=== PATIENT | female | born 1985 | race Caucasian/White ===

== ENCOUNTER 2017-07-15 15:19 | Emergency (ER) | payer MEDICAID, SELFPAY ==
[2017-07-15 15:20] VITALS: BP 108/69; PULSE 98; RESP 16; TEMP 37.1; O2SAT 100; BMI 17.4
--- NOTE | 2017-07-15 16:03 | CT_ITS ---
STUDY: CT BRAIN WITHOUT CONTRAST REASON FOR EXAM: Female, 32 years old. Headache x3 days RADIATION DOSAGE (If Supplied By Facility): CTDIvol = ( 44.99 ) mGy, DLP = ( 779.24 ) mGycm TECHNIQUE: Transaxial CT imaging of the brain was performed without administration of intravenous contrast material. Individualized dose optimization techniques were used for this CT. COMPARISON: 03/22/2015 FINDINGS: Normal soft tissue structures. Normal calvarium. Normal size ventricles and extra-axial spaces for the patient's age. Normal white matter tracts of the cerebral hemispheres. Normal basal ganglia and thalami. Normal brainstem. Normal cerebellum. There is no intracranial hemorrhage. There are no findings of an acute ischemic infarction. Normal visualized paranasal sinuses. CT/Brain/Head without Contrast IMPRESSION: Normal unenhanced CT scan of the brain. Electronically Signed: Kasi Hugo DO at 16:59 EDT Tel , Service support ,
[2017-07-15 16:04] VITALS: BP 114/86; PULSE 83; RESP 14; O2SAT 100
--- NOTE | 2017-07-15 16:07 | ED.RN ---
AFTER PLACING PT ON ED CART, PT TAKEN TO ED ROOM 5. UPON ENTERING THE ROOM, PT ABLE TO SIT UP AND ASSIST STAFF IN REMOVING HER CLOTHING. WHEN FATHER ENTERED THE ROOM PT WAS HANDED HER CELL PHONE BY THE FATHER AND PT ABLE TO PULL UP A NOTE SHE HAD WRITTEN FOR THE STAFF TO READ ABOUT HER CURRENT ILLNESS
--- NOTE | 2017-07-15 16:10 | ED.RN ---
PT WAS SITTING IN THE HALLWAY WAITING FOR A ROOM. ACCORDING TO FATHER PT SLID SLOWLY TO THE FLOOR AND THEN STARTED SHAKING. WHEN ASKED IF SHE HAD A SEIZURE HISTORY HE SAID SHE HAS A HEART CONDITION AND THIS HAPPENS SOMETIMES. PT WAS SHAKING ON THE FLOOR BUT HER HEAD WAS NOT HITTING THE FLOOR. PT'S HEAD WAS HELD TO AVOID INJURY UNTIL A BED AND ADDITIONAL STAFF ARRIVED. PT WAS THEN LIFTED ONTO THE BED. AT THIS TIME THERE WAS NO MORE SHAKING NOTED. PT REMAINED PINK AND CONTINUED TO BREATH WITH A STEADY PULSE THROUGHOUT THE EPISODE.
[2017-07-15] MEDS: 0.9% Normal Saline 1,000 ML 999 ML IV (16:16)
[2017-07-15] MEDS: LORazepam 2 MG/ML Syringe 1 MG IV (16:16)
[2017-07-15] MEDS: proCHLORPERazine 10 MG/2 ML Vial IV (16:17)
[2017-07-15] MEDS: Ketorolac 30 MG/ML Syringe IV (16:18)
--- NOTE | 2017-07-15 16:21 | ED.DCSUM_ITS ---
- ER Visit Summary Date of Service: 07/15/17 Chief Complaint: Headache History of Present Illness: The patient is a 32 F who states that she has had a occipital migraine for 3 days. She takes Topamax prescribed through her family physician. She states that she was driving around [place] this afternoon began to have stuttering. Her arms were shaking. Significant other states her left arm did not seem to want to work. She has never had stuttering before. She has had recurrent syncope. He states that this is due to SVT. She has MVP. She has had cardiac ablations in the past. She has had several visits for syncope here. Noted that stress and anxiety can play a role in her medical conditions. 1 prior syncope described her to have her eyes fluttering in her arm shaking. In triage the patient had a episode where she collapsed. Nurses note her eyes were fluttering and arms were shaking. They got her back to the room and she was able to sit up reach for her cell phone and help them get her dressed. Physical Examination: Afebrile vital signs are stable Gen: Well-nourished well-developed Head: Normocephalic atraumatic Eyes: Perrl EOMI ENT: TMs clear no rhinorrhea moist mucous membranes Neck: Supple no lymphadenopathy no JVD nontender CVS: Regular rate rhythm no murmurs normal S1-S2 Respiratory: No distress clear to auscultation bilaterally chest nontender Abdomen: Soft nontender nondistended normal bowel sounds no masses Back: Nontender Extremity: Nontender no edema Skin: Normal color no rash Neuro: alert orientated ?3 CN II-XII intact normal strength sensation reflexes the patient's daughters Psych: She has Test Results: CT brain showed no acute findings. Emergency Department Course and Treatment: She received IV fluids, Toradol, Compazine, and Ativan. Repeat examination shows the patient to no longer be stuttering shaking. She states her headache is significantly improved to the point of near resolution. Patient notes that she is under a significant amount of stress. She has several open court cases. She used to be in counseling but is no longer. I believe a lot of the patient's symptoms today are related to her stress and anxiety. This would borderline on conversion disorder. Patient will be discharged home to follow-up with her doctor. She is asked for a local neurologist to discuss her headaches. Impression: 1. Headache 2. Conversion disorder This note was generated with [employer] dictation software. It may contain incorrect words, spelling, and punctuation that were not noted in review of the chart prior to signing ED Disposition - Plan for ED Patient: Disposition: Home or Assisted Living Chief Complaint: Headache Instructions: ED Headache Migraine Referrals: Tomeka Nichols MD [Primary Care Provider] - 3-5 Days Km Cross MD [STAFF PHYSICIAN] - (for neurology ) Additional Instructions: I would recommend to help cope with your stress you start counseling again.
[2017-07-15 18:15] VITALS: BP 85/53; PULSE 73; RESP 16; O2SAT 99
[2017-07-15 19:12] VITALS: BP 93/55; PULSE 88; RESP 14; O2SAT 98
== END 2017-07-15 19:13 | disposition home or self-care (01) ==
PROVIDERS: Emergency Provider Emergency Medicine; Family Provider Family Medicine; PCP Family Medicine
DX: R51 Headache (principal); F44.9 Dissociative and conversion disorder, unspecified; R55 Syncope and collapse; Z72.0 Tobacco use
CPT/HCPCS: 70450; 99284; J7030; A4216

== ENCOUNTER 2019-02-01 18:04 | Emergency (ER) | payer MEDICAID, SELFPAY ==
[2019-02-01 18:05] VITALS: BP 109/58; PULSE 118; RESP 16; TEMP 37.6; O2SAT 97; BMI 16.2
--- NOTE | 2019-02-01 18:10 | EKG12_ITS ---
Test Reason : CP Blood Pressure : / mmHG Vent. Rate : 107 BPM Atrial Rate : 107 BPM P-R Int : 130 ms QRS Dur : 084 ms QT Int : 306 ms P-R-T Axes : 061 090 -02 degrees QTc Int : 408 ms Sinus tachycardia Rightward axis Nonspecific ST/T wave abnormality Abnormal ECG Confirmed by MERLYN VALDES, NORRIS ([id number]), order editor PABLO HANSEN ([id number]) on 02/03/2019 1:57:24 PM Referred By: GÉNESIS Confirmed By:NORRIS ZULETA MD
--- NOTE | 2019-02-01 18:29 | RAD_ITS ---
STUDY: X-RAY CHEST REASON FOR EXAM: Female, 33 years old. Cough TECHNIQUE: PA and lateral views of the chest COMPARISON: X-Ray Chest August 11, 2014 FINDINGS: There are small right middle and lower lung zone infiltrates. The left lung is unremarkable. There are no pleural effusions. There is no pneumothorax. The heart is normal in size. The visualized osseous structures are within normal limits. RAD/Chest PA and Lateral IMPRESSION: Small right middle and lower lung zone infiltrates. Electronically Signed: Earnest Mckeon, at 19:20 EDT Tel , Service support ,
--- NOTE | 2019-02-01 18:30 | CT_ITS ---
STUDY: CT BRAIN WITHOUT CONTRAST REASON FOR EXAM: Female, 33 years old. Syncope RADIATION DOSAGE (If Supplied By Facility): DLP = ( 745.49 ) mGycm TECHNIQUE: Transaxial CT imaging of the brain was performed without administration of intravenous contrast material. Individualized dose optimization techniques were used for this CT. COMPARISON: X-ray head July 15, 2017 FINDINGS: There is no acute bleed or infarct. There are normal white matter tracts. The ventricles are normal in configuration. There is no hydrocephalus. The visualized paranasal sinuses are clear. The mastoid air cells are well aerated. There is no skull fracture. CT/Brain/Head without Contrast IMPRESSION: No acute intracranial abnormality. Electronically Signed: Earnest Mckeon, at 19:13 EDT Tel , Service support ,
[2019-02-01] MEDS: Ketorolac 30 MG/ML Syringe IM (18:40)
--- NOTE | 2019-02-01 19:00 | RAD_ITS ---
STUDY: X-RAY - CERVICAL SPINE REASON FOR EXAM: Female, 33 years old. Headache TECHNIQUE: 3 view(s) of the cervical spine were obtained. COMPARISON: None FINDINGS: There is no evidence of fracture or dislocation in the cervical spine. The dens is intact. The vertebral body heights and disc spaces are well-maintained. There are no significant degenerative changes. The prevertebral soft tissues are unremarkable. There is no radiodense foreign body. RAD/Cerv Spine 2 or 3 Views IMPRESSION: No fracture or dislocation in the cervical spine. Electronically Signed: Earnest Mckeon, at 19:24 EDT Tel , Service support ,
[2019-02-01 19:26] VITALS: BP 97/60; PULSE 99; RESP 20; TEMP 38.2; O2SAT 97
--- NOTE | 2019-02-01 20:04 | ED.VISSUMM ---
- ER Visit Summary Date of Service: 02/01/19 Chief Complaint: [Body aches, fever, cough] History of Present Illness: The patient is a 33 F [resents to the emergency department with multiple complaints that started yesterday. Patient states that she is had a cough since yesterday and has been mostly dry. Patient did have an episode yesterday while sitting in the tub when she began feeling acutely nauseated and while vomiting she passed out and struck her head on a wall. Patient thinks he may have been unconscious for a minute or 2. Patient does have history of vasovagal syncope as well as SVT and mitral valve prolapse as well as postural tachycardia. 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 Patient denies any diarrhea. She is had no further vomiting. She does describe some diffuse chest discomfort especially with cough and breathing. Had fever at home up to 104.] Physical Examination: [HEENT-PERRLA, EOMI. Cranial nerves II through XII grossly intact. TMs clear. Mucous membranes moist. No adenopathy. Patient does complain of tenderness to the C-spine on palpation. No bony step-offs. No external evidence of trauma to patient's head. Cardiovascular-regular rate and rhythm without murmur or ectopy Lungs-clear to auscultation, chest wall stable without crepitus or subcu emphysema Abdomen-normoactive bowel sounds, soft, nontender, no rebound or rigidity, no peritoneal signs. Extremities-intact ?4, normal range of motion, normal pulses, atraumatic] Test Results: [EKG was ordered by nursing staff on patient arrival shows sinus tachycardia with a ventricular rate of 107 bpm with some nonspecific ST changes. CT scan of the brain without contrast obtained was unremarkable. X-rays of the cervical spine showed no fractures.] Chest x-ray obtained showed a small right middle lobe and right lower lobe infiltrate. The influenza screen was negative. Emergency Department Course and Treatment: [Patient was started on Levaquin 750 mg p.o. Patient received initially Toradol IM.] Treatment Plan: [She will be given a prescription for Levaquin and Tessalon Perles. Patient advised to follow-up with her primary care physician in 3 to 5 days.] Disposition: [Discharged home stable condition. Patient advised to return if increasing shortness of breath or conditions worsen anyway.] Impression: [Community-acquired pneumonia] This note was generated with [employer] dictation software. It may contain incorrect words, spelling, and punctuation that were not noted in review of the chart prior to signing ED Disposition - Plan for ED Patient: Referrals: Tomeka Nichols MD [Primary Care Provider] -
--- NOTE | 2019-02-01 20:09 | ED.DEP ---
ED Disposition - Plan for ED Patient: Instructions: Pneumonia Prescriptions: Levofloxacin [Levaquin] 750 mg PO DAILY #7 tab Prescription Printed Benzonatate [Tessalon Perle] 200 mg PO TID PRN PRN #20 cap PRN Reason: Cough Prescription Printed Referrals: Tomeka Nichols MD [Primary Care Provider] - Paddy Batista MD [STAFF PHYSICIAN] - 3-5 Days
[2019-02-01] MEDS: levoFLOXacin 750 MG Tablet PO (20:18)
[2019-02-01 20:19] VITALS: BP 100/65; PULSE 102; PULSE 107; RESP 20; O2SAT 99
== END 2019-02-01 20:20 | disposition home or self-care (01) ==
PROVIDERS: Emergency Provider Emergency Medicine; Family Provider Family Medicine; PCP Family Medicine
DX: J18.9 Pneumonia, unspecified organism (principal); R55 Syncope and collapse; I34.1 Nonrheumatic mitral (valve) prolapse; I47.1 Supraventricular tachycardia; Z72.0 Tobacco use
CPT/HCPCS: 70450; 71046; 72040; 87804; 93005; 96372; 99283; A4216

== ENCOUNTER 2021-06-01 12:23 | Emergency (ER) | payer MEDICAID, SELFPAY ==
[2021-06-01 12:24] VITALS: BP 109/62; PULSE 87; RESP 14; TEMP 36.9; O2SAT 100; BMI 19.4
--- NOTE | 2021-06-01 12:47 | EDS_ITS ---
HPI History of Present Illness Chief Complaint: Headache Narrative Narrative: 36-year-old female presenting with headache which she described as right-sided. She states that it radiates into the right side of her face and down her right shoulder into her arm. This started about 30 minutes prior to arrival when she was sitting. She states that she fainted just before this happened. She has a history of syncope in the past. She states she usually faints after she gets a headache. She denies visual complaints. She does states that she has some tingling of the right upper extremity. Her states that initially after she had the episode where she passed out on the couch. She was holding her right hand up over her face with her right hand on her forehead. She did not faint again. She states the headache started after this. She does have history of migraine headaches. She states usually they are on the left side. She does admit to some light sensitivity without sound sensitivity. Patient is not had fever or chills. She has mild nausea without vomiting. Patient denies chest pain or shortness of breath. She does admit to palpitations before she had an episode of syncope on the couch. She has a history of SVT with 4 ablations in the past. [facility] Medical History Migraine Mitral valve prolapse SVT (supraventricular tachycardia) Home Medications topiramate 25 mg DAILY 07/15/17 [History Last Taken 07/15/17] valacyclovir 1,000 mg PO DAILY 02/01/19 [History Last Taken Unknown] bupropion HCl 300 mg PO DAILY 06/01/21 [History Last Taken Unknown] Allergy/AdvReac Type Severity Reaction Status Date / Time sumatriptan [From Imitrex] Allergy Other Verified 06/01/21 12:24 sumatriptan succinate Allergy Other Verified 06/01/21 12:24 [From Imitrex] promethazine HCl AdvReac Vomiting Verified 06/01/21 12:24 [From Phenergan] Surgical History H/O: hysterectomy History of tonsillectomy Hx of appendectomy Social History Smoking Status: Never smoker ROS ROS ED Constitutional Constitutional ED: Denies chills or fever(s) Eyes Eyes: Denies blurry vision or change in vision ENT ENT ED: Denies rhinorrhea or sore throat Cardiovascular Cardiovascular: Reports palpitations; Denies chest pain Respiratory/Chest Respiratory/Chest: Denies cough or dyspnea Gastrointestinal Gastrointestinal: Reports nausea; Denies abdominal pain, constipation, diarrhea or vomiting Genitourinary Genitourinary ED: Denies dysuria or hematuria Musculoskeletal Musculoskeletal: Reports neck pain Integumentary Denies rash Neurologic Neurologic: Reports headache(s) and paresthesias RUE Psychiatric Psychiatric: Denies anxiety or depression EXAM Physical Exam Const Vital Signs: 06/01/21 12:24 06/01/21 12:57 Temperature 98.5 F Temperature Source Temporal Pulse Rate 87 Respiratory Rate 14 Blood Pressure 109/62 Blood Pressure Mean 77 Pulse Ox 100 97 Oxygen Delivery Method Room Air Room Air Positive well nourished General Appearance ED: NAD; Negative for pallor HEENT Reports normocephalic atraumatic Eyes PERRL and EOMs intact bilaterally Neck no lymphadenopathy and supple General: other Tenderness palpation of the cervical spine midline without deformity or step-off. This is diffuse. No paraspinal muscular tenderness. Resp normal respiratory effort and clear to auscultation bilaterally Cardio regular rate and regular rhythm Neuro oriented x3, CN's II-XII intact bilaterally and no sensory deficits noted Sensorium / Orientation: awake and alert Psych mental status grossly normal Skin General Skin Exam: Negative for jaundice or pallor Lesions: no lesions Rashes: no rashes MDM MDM MDM Narrative Medical decision making narrative: Because of the patient's palpitations I did obtain an EKG and this is 66 bpm with a normal sinus rhythm on my interpretation. There are no signs of dysrhythmia or ST elevation/depression. CBC and BMP are within normal limits. High-sensitivity troponin is 4. Patient is only reporting palpitations and not chest pain. She also states that she was syncopal but has a history of this. I do not believe she needs a delta troponin. hCG is negative. Chest x-ray my interpretation is no acute cardiopulmonary process and the radiologist does agree. CTA head and neck are negative for any acute findings. Patient felt improved with Reglan and Benadryl. She will be given Toradol. On reevaluation her symptoms have resolved. I believe his symptoms are likely due to migraine. Patient has Return Precautions but I Feel She Stable to Be Discharged Home with Follow-Up with Her Primary. Impression: 1. Migraine 2. Palpitations 3. Syncope Lab Data Attestation: I reviewed the patient's lab results. Labs: Laboratory Results - last 24 hr 06/01/21 06/01/21 06/01/21 13:13 13:13 13:13 WBC 5.9 RBC 4.57 Hgb 14.0 Hct 40.5 MCV 88.6 MCH 30.6 MCHC 34.6 RDW Std Deviation 43.1 RDW Coeff of Kaye 13.3 Plt Count 197 MPV 10.8 Immature Gran % (Auto) 0.200 Neut % (Auto) 63.9 Lymph % (Auto) 30.3 Cooke % (Auto) 3.9 Eos % (Auto) 1.0 Baso % (Auto) 0.7 Absolute Neuts (auto) 3.8 Absolute Lymphs (auto) 1.79 Nucleated RBC % 0 Sodium 139 Potassium 3.7 Chloride 109 H Carbon Dioxide 25.0 Anion Gap 5 BUN 16 Creatinine 0.87 Estim Creat Clear Calc 81.15 Est GFR (MDRD) Af Amer 94 Est GFR (MDRD) Non-Af 78 BUN/Creatinine Ratio 18.3 Glucose 118 H Calcium 8.8 Troponin I High Sens 4 HCG, Quant < 1 Radiography Diagnostic Testing: Clinical Impression(s) from Imaging Studies Head/Neck CTA 06/01/21 12:48 IMPRESSION: Normal CTA Head and neck with contrast. Electronically Signed: James Guillen MD at 14:50 EST , Chest X-Ray 06/01/21 13:35 IMPRESSION: Normal x-ray examination of the chest. Electronically Signed: James Guillen MD at 13:45 EST , Discharge Plan Triage Chief Complaint: Headache ED Provider: Wallace Betancourt Dx/Rx/DC Orders Instructions: Migraines and Cluster Headaches, ED Palpitations, ED Fainting, U ncertain Cause Prescriptions: No Action topiramate 25 MG tablet 25 mg DAILY RF: 0 valacyclovir 500 MG tablet 1,000 mg PO DAILY RF: 0 bupropion HCl 300 mg tablet extended release 24 hr 300 mg PO DAILY RF: 0 Primary Care Provider: Paddy Batista Referrals: Paddy Batista MD [Primary Care Provider] - Disposition Disposition: Home, Self Care
--- NOTE | 2021-06-01 12:47 | EKG12_ITS ---
Test Reason : HEADACHE Blood Pressure : / mmHG Vent. Rate : 066 BPM Atrial Rate : 066 BPM P-R Int : 126 ms QRS Dur : 082 ms QT Int : 406 ms P-R-T Axes : 060 087 061 degrees QTc Int : 425 ms Normal sinus rhythm Normal ECG Confirmed by DARRION VALDES, MADHURI ([id number]), dictionary editor FARIBA TIMMONS ([id number]) on 06/04/2021 10:02:55 AM Referred By: SHADIA Confirmed By:MADHURI MAIER MD
--- NOTE | 2021-06-01 12:48 | CT_ITS ---
STUDY: CTA HEAD AND NECK WITH CONTRAST REASON FOR EXAM: Female, 36 years old. Headache RADIATION DOSAGE (If Supplied By Facility): CTDIvol = ( 24.52 ) mGy, DLP = ( 1360.13 ) mGycm TECHNIQUE: CT angiography was performed with a multi-detector CT scanner. Data acquisition was obtained from the skull base through the vertex following intravenous administration of IV 75mL Isovue-370. MIP images were reconstructed from the axial data set. Post-processing of the angiographic images was performed, with multiplanar reformation and 3D reconstruction. Individualized dose optimization techniques were used for this CT. COMPARISON: No relevant priors. FINDINGS: Normal bilateral petrous carotid arteries. Normal right cavernous carotid artery with a normal supraclinoid bifurcation. Normal left cavernous carotid artery with a normal supraclinoid bifurcation. Normal right A1 segments of the anterior cerebral artery. Normal left A1 segments of the anterior cerebral artery. Normal intact anterior communicating artery (ACOM). Normal bilateral A2 segments of the anterior cerebral arteries. Normal right M1 and M2 segments of the middle cerebral arteries, with a normal M1 bifurcation. Normal left M1 and M2 segments of the middle cerebral arteries, with a normal M1 bifurcation. Normal right posterior communicating artery (PCOM). Normal left posterior communicating artery (PCOM). Normal bilateral vertebral arteries. Normal basilar artery with a normal basilar bifurcation. The visualized bilateral superior cerebellar (SCA) arteries are normal. Normal bilateral P1, P2 and visualized P3 segments of the posterior cerebral arteries. There is no demonstrated aneurysm of the grindstone of [place]. There is no demonstrated abnormality of the visualized brain. There are small hypodense nodules in both lobes of the thyroid gland. AORTIC ARCH: There is atherosclerotic calcific plaque formation of the aortic arch and great vessels arising from the aortic arch, without a hemodynamically significant stenosis. There is a bovine origin of the great vessels with a common origin of the brachiocephalic and left common carotid artery. Normal origin of the left subclavian artery. RIGHT CAROTID ARTERIES: Normal right common carotid artery (CCA). Normal right common carotid bulb. Normal origin of the right internal carotid (ICA) artery without a hemodynamically significant stenosis. Normal visualized cervical portion of the right internal carotid artery. Normal origin of the right external carotid artery (ECA). LEFT CAROTID ARTERIES: Normal left common carotid artery (CCA). Normal left common carotid bulb. Normal origin of the left internal carotid (ICA) artery without a hemodynamically significant stenosis. Normal visualized cervical portion of the left internal carotid artery. Normal origin of the left external carotid artery (ECA). VERTEBRAL ARTERIES: Normal bilateral vertebral arteries. CT/CTA Head AND Neck W/ Contrast IMPRESSION: Normal CTA Head and neck with contrast. Electronically Signed: James Guillen MD at 14:50 EST ,
[2021-06-01 12:57] VITALS: O2SAT 97
[2021-06-01] MEDS: 0.9% Normal Saline 1,000 ML 999 ML IV (13:08)
[2021-06-01] MEDS: DiphenhydrAMINE 50 MG/ML Syringe 25 MG IV (13:08)
[2021-06-01] MEDS: Metoclopramide 10 MG/2 ML Vial IV (13:09)
[2021-06-01 13:24] LABS: Absolute Lymphocyte Count 1.79 X10^3/uL (0.83-4.51); Absolute Neutrophil Count 3.8 X10^3/uL (2.0-7.7); Basophil# 0.04 X10^3/uL; Basophil% 0.7 % (0-1); Eosinophil# 0.06 X10^3/uL; Hematocrit 40.5 % (37-47); Lymphocyte # 1.79 X10^3/ul (0.83-4.51); Lymphocyte % 30.3 % (19-41); Mean Corp Hgb Conc 34.6 g/dL (32-36); Mean Corpuscular Hgb 30.6 pg (27.0-32.0); Mean Corpuscular Volume 88.6 fL (81-99); Mean Platelet Vol. 10.8 fl (6.2-12.0); Monocyte# 0.23 X10^3/uL; Monocyte% 3.9 % (0-10); NRBC Flagged by Analyzer 0 % (0-5); Neutrophil # 3.78 X10^3/uL (2.7-7.7); Neutrophil % 63.9 % (47-70); Platelet Count 197 K/mm3 (150-450); RBC Distribution Width CV 13.3 % (11.6-14.6); RBC Distribution Width SD 43.1 fl (35.1-43.9); Red Blood Count 4.57 M/mm3 (4.2-5.4); White Blood Count 5.9 K/mm3 (4.4-11.0)
--- NOTE | 2021-06-01 13:35 | RAD_ITS ---
STUDY: X-RAY CHEST REASON FOR EXAM: Female, 36 years old. Chest pain TECHNIQUE: Single AP portable view of the chest. COMPARISON: Comparison is made with prior study dated 02/01/2019. FINDINGS: EKG electrodes are seen. Hyperinflation. The lungs are clear. Faint linear density are seen in the medial aspect of the arm. This appears to be either calcification of the venous structures versus IV contrast. There is no demonstrated pleural abnormality. Normal size heart. Normal mediastinum and deepali. Normal visualized pulmonary arteries. Normal visualized aortic arch and descending thoracic aorta. Normal visualized thoracic spine. Normal visualized ribs, clavicles, and shoulders. There is no demonstrated abnormality of the visualized soft tissue structures of the upper abdomen. RAD/Chest 1 View (Portable) IMPRESSION: Normal x-ray examination of the chest. Electronically Signed: James Giullen MD at 13:45 EST ,
[2021-06-01 13:39] LABS: Anion Gap 5 (5-15); BUN 16 mg/dL (7-18); BUN/Creat Ratio 18.3 RATIO (10-20); Calcium,Total 8.8 mg/dL (8.5-10.1); Chloride 109 mmol/L (98-107); Creatinine, Serum 0.87 mg/dL (0.55-1.02); EST Glomerular Filtration Rate 78 mL/min (>60); Est Glom Filt Rate - Afr Amer 94 mL/min (>60); Estimated Creatinine Clearance 81.15 ml/min; Glucose 118 mg/dL (74-106); Potassium 3.7 mmol/L (3.5-5.1); Sodium Level 139 mmol/L (136-145); Troponin-I HS 4 pg/mL (3.0-54.0)
[2021-06-01 14:11] LABS: hCG Titer Quant., Serum < 1 mIU/mL (1-3)
[2021-06-01] MEDS: Ketorolac 15 MG/ML Vial IV (15:00)
[2021-06-01 15:35] VITALS: BP 110/76; PULSE 83; RESP 16; O2SAT 97
== END 2021-06-01 23:59 | disposition home or self-care (01) ==
PROVIDERS: Emergency Provider Student in an Organized Health Care Education/Training Program; PCP Family Medicine; Visit Provider Student in an Organized Health Care Education/Training Program
DX: G43.909 Migraine, unspecified, not intractable, without status migrainosus (principal); R55 Syncope and collapse; R00.2 Palpitations
CPT/HCPCS: 70496; 70498; 71045; 80048; 84484; 84702; 85025; 93005; 96361; 96374; 96375; 99285; J7030; Q9967; A4216

== ENCOUNTER 2021-11-02 16:05 | Emergency (ER) | payer OTHER, MEDICAID, SELFPAY ==
[2021-11-02 16:05] VITALS: BP 90/54; PULSE 79; RESP 18; TEMP 35.7; O2SAT 100; BMI 19.5
--- NOTE | 2021-11-02 16:28 | CT_ITS ---
STUDY: CT Abdomen And Pelvis W/ Contrast Injection 11/02/2021 5:34 PM REASON FOR EXAM: Female, 36 years old. ABDOMINAL PAIN abdominal pain. HYSTERECTOMY TECHNIQUE: Transaxial images were obtained without oral contrast, and IV 100mL Isovue-300 intravenous contrast. Individualized dose optimization techniques were used for this CT. COMPARISON: None. FINDINGS: The visualized lung bases are unremarkable. The visualized portions of the heart are within normal limits. There are hypodensities of the liver. These maybe cysts but are indeterminate. ACR White Paper guidelines ([place], et al. JACR 2017; 14(11):3574-3123.) suggest the following. For patients with low risk of malignancy, no further follow-up is necessary. For patients with high risk of malignancy (known malignancy with a propensity to metastasize to the liver, cirrhosis, and/or other hepatic risk factors), recommend follow-up abdominal CT or MR in 6 months.Unremarkable gallbladder and extrahepatic biliary system. Unremarkable spleen. Unremarkable pancreas. Unremarkable bilateral adrenal glands. No acute findings of the right kidney. No acute findings of the left kidney. Unremarkable visualized stomach. Unremarkable small intestine. Unremarkable colon. There is non-visualization of the appendix. There are no acute findings of the abdominal aorta. Unremarkable inferior vena cava. Subcentimeter mesenteric lymph nodes. Unremarkable urinary bladder. There is absence of the uterus consistent with a prior hysterectomy. Unremarkable abdominal wall. Unremarkable osseous structures. CT/Abdomen/Pelvis W IV Cont ONLY IMPRESSION: (NOT LISTED IN ORDER OF SIGNIFICANCE) There are no acute findings. There are hypodensities of the liver. These maybe cysts but are indeterminate. ACR White Paper guidelines ([place], et al. JACR 2017; 14(11):7670-1585.) suggest the following. For patients with low risk of malignancy, no further follow-up is necessary. For patients with high risk of malignancy (known malignancy with a propensity to metastasize to the liver, cirrhosis, and/or other hepatic risk factors), recommend follow-up abdominal CT or MR in 6 months Other findings as above. Electronically Signed: Dharmesh Rivera MD at 17:38 EDT ,
--- NOTE | 2021-11-02 16:36 | ED.VIS.GI ---
HPI HPI - GI History of Present Illness Chief Complaint: Abd Pain Narrative Narrative: Patient with past medical history of migraine headaches, SVT, presents with left lower quadrant abdominal pain that she has had since yesterday. She has had partial hysterectomy 10 years ago. She also has PCOS and sometimes gets ovarian cysts. She states that her symptoms began yesterday morning and got worse throughout today. She complains of pain in the left lower quadrant of her abdomen. That set off her migraine headaches and she has nausea and vomiting. She vomited 4-5 times without any blood in her emesis. She denies any dysuria or hematuria. No diarrhea. No obstipation. No fevers or chills. She presents because of the pain, and the nausea and vomiting associated with her headache also. [facility] Medical History (Updated 11/02/21 @ 18:38 by Chaka Hurt MD) Depression Herpes zoster Insomnia Migraine Mitral valve prolapse SVT (supraventricular tachycardia) Home Medications topiramate 25 mg tablet 25 mg PO DAILY 07/15/17 [History Last Taken 07/15/17] valacyclovir 500 mg tablet 1,000 mg PO DAILY 02/01/19 [History Last Taken Unknown] bupropion HCl 300 mg 24 hr tablet, extended release 300 mg PO DAILY 06/01/21 [History Last Taken Unknown] omeprazole 20 mg capsule,delayed release 20 cap PO DAILY 11/02/21 [History Last Taken Unknown] trazodone 50 mg tablet 50 tab PO DAILY 11/02/21 [History Last Taken Unknown] Allergy/AdvReac Type Severity Reaction Status Date / Time adhesive tape Allergy Rash Verified 11/02/21 16:07 sumatriptan [From Imitrex] Allergy Other Verified 11/02/21 16:07 sumatriptan succinate Allergy Other Verified 11/02/21 16:07 [From Imitrex] promethazine HCl AdvReac Vomiting Verified 11/02/21 16:07 [From Phenergan] Surgical History H/O: hysterectomy History of tonsillectomy Hx of appendectomy Social History Smoking Status: Never smoker ROS ROS ED ROS Narrative Constitutional: No fever, no chills. HEENT: No sore throat. No neck pain. No loss of vision. No rhinorrhea. Cardiovascular: No chest pain. No palpitations. No pedal edema. Respiratory: No cough, no shortness of breath. Abdominal: Left lower quadrant abdominal pain. Positive nausea. 4-5 episodes of nonbloody vomiting. No diarrhea. Genitourinary: No dysuria. No hematuria. Musculoskeletal: No myalgias. No arthralgias. Neurologic: Positive migraine headaches. No dizziness. No lightheadedness. Skin: No rash. No change in color. Psychiatric: No depression. No anxiety. EXAM Physical Exam Narrative Exam Narrative: Afebrile. Vital signs noted. HEENT: Normocephalic. Atraumatic. PERRL, EOMI. Neck soft and supple. No point tenderness or step off. Cardiovascular: Regular rate and rhythm. No murmurs, rubs, or gallops appreciated. Respiratory: No tachypnea. Lungs clear to auscultation bilaterally. Gastrointestinal: Abdomen soft, mild tenderness to palpation left lower quadrant, with normoactive bowel sounds. No rebound or guarding. Neurological: Awake. Alert. Nonfocal, nonlateralizing. Skin: No rash. Normal color. No pallor. Musculoskeletal: No pedal edema. Full range of motion extremities. Const Vital Signs: 11/02/21 16:05 Temperature 96.2 F L Temperature Source Temporal Pulse Rate 79 Respiratory Rate 18 Blood Pressure 90/54 L Blood Pressure Mean 66 Pulse Ox 100 Oxygen Delivery Method Room Air MDM MDM MDM Narrative Medical decision making narrative: Patient will be treated for migraine headache with a bolus of IV fluids, Reglan, and Benadryl. I do feel that imaging is indicated given her left lower quadrant pain. I will also obtain baseline laboratories such as CBC and CMP. CBC is grossly normal with a normal white count of 6.0, hemoglobin normal at 12.9. Platelet count also normal at 178. Electrolyte panel shows chloride of 110, otherwise unremarkable with glucose of 141 and normal anion gap/low at 4. Urinalysis shows 50 ketones, but no evidence of infection. I do not feel antibiotics are indicated. CT of the abdomen pelvis shows no acute process. Upon repeat examination she states that her headache is almost gone. She was unable to take her Maxalt because she was not at home. At this point in time, I feel she can be discharged safely home with follow-up to her primary care provider. Return instructions to the emergency department were reviewed. Disposition is discharged home in stable condition. Lab Data Attestation: I reviewed the patient's lab results. Labs: Laboratory Results - last 24 hr 11/02/21 11/02/21 11/02/21 16:35 16:35 18:00 WBC 6.0 RBC 4.26 Hgb 12.9 Hct 38.9 MCV 91.3 MCH 30.3 MCHC 33.2 RDW Std Deviation 42.0 RDW Coeff of Kaye 12.6 Plt Count 178 MPV 10.4 Immature Gran % (Auto) 0.300 Neut % (Auto) 70.3 H Lymph % (Auto) 24.4 [place] % (Auto) 3.7 Eos % (Auto) 0.8 Baso % (Auto) 0.5 Absolute Neuts (auto) 4.2 Absolute Lymphs (auto) 1.46 Nucleated RBC % 0 Sodium 140 Potassium 4.0 Chloride 110 H Carbon Dioxide 26.0 Anion Gap 4 L BUN 11 Creatinine 0.85 Estim Creat Clear Calc 83.71 Est GFR (MDRD) Af Amer 97 Est GFR (MDRD) Non-Af 80 BUN/Creatinine Ratio 13.0 Glucose 141 H Calcium 9.0 Total Bilirubin 0.40 AST 9 L ALT 18 Alkaline Phosphatase 57 Total Protein 6.8 Albumin 3.8 Globulin 3.0 Albumin/Globulin Ratio 1.3 Lipase 184 Urine Color Yellow Urine Clarity Sl. Cloudy Urine pH 6.0 Ur Specific [place] 1.010 Urine Protein 15 H Urine Glucose (UA) Normal Urine Ketones 50 H Urine Occult Blood Negative Urine Nitrite Negative Urine Bilirubin Negative Urine Urobilinogen Normal Ur Leukocyte Esterase Negative Urine RBC 0 SEEN Urine WBC 0 SEEN Ur Squamous Epith Cells 0-5 SEEN Urine Bacteria 0 SEEN Urine Mucus 0 SEEN Radiography Diagnostic Testing: Clinical Impression(s) from Imaging Studies Abdomen/Pelvis CT 11/02/21 16:28 IMPRESSION: (NOT LISTED IN ORDER OF SIGNIFICANCE) There are no acute findings. There are hypodensities of the liver. These maybe cysts but are indeterminate. ACR White Paper guidelines (sabine Langford al. JACR 2017; 14(11):9342-6521.) suggest the following. For patients with low risk of malignancy, no further follow-up is necessary. For patients with high risk of malignancy (known malignancy with a propensity to metastasize to the liver, cirrhosis, and/or other hepatic risk factors), recommend follow-up abdominal CT or MR in 6 months Other findings as above. Electronically Signed: Dharmesh Rivera MD at 17:38 EDT Reading Location ID and State: [facility] / [place] , Service support , Discharge Plan Triage Chief Complaint: Abd Pain ED Provider: Chaka Hurt Dx/Rx/DC Orders Clinical Impression: Abdominal pain, Migraine Instructions: ED Abdominal Pain Unkn Cause Fem, ED, Migraine (Classical) Prescriptions: No Action topiramate 25 MG tablet 25 mg PO DAILY valacyclovir 500 MG tablet 1,000 mg PO DAILY bupropion HCl 300 mg tablet extended release 24 hr 300 mg PO DAILY Label Comments: TAKE 1 TABLET BY MOUTH EVERY DAY trazodone 50 mg tablet 50 tab PO DAILY omeprazole 20 mg capsule,delayed release(DR/EC) 20 cap PO DAILY Label Comments: TAKE 1 CAPSULE BY MOUTH DAILY 1/2 HOUR BEFORE BREAKFAST Primary Care Provider: Paddy Batista Referrals: Paddy Batista MD [Primary Care Provider] - 3-5 Days if not improving Disposition Disposition: Home, Self Care
[2021-11-02] MEDS: 0.9% Normal Saline 1,000 ML 1000 ML IV (16:41)
[2021-11-02] MEDS: Metoclopramide 10 MG/2 ML Vial IV (16:41)
[2021-11-02] MEDS: DiphenhydrAMINE 50 MG/ML Syringe 25 MG IV (16:41)
[2021-11-02 16:45] LABS: Absolute Lymphocyte Count 1.46 X10^3/uL (0.83-4.51); Absolute Neutrophil Count 4.2 X10^3/uL (2.0-7.7); Basophil# 0.03 X10^3/uL; Basophil% 0.5 % (0-1); Eosinophil# 0.05 X10^3/uL; Eosinophils% 0.8 % (0-5); Hematocrit 38.9 % (37-47); Hemoglobin 12.9 g/dL (12.0-15.0); Lymphocyte # 1.46 X10^3/ul (0.83-4.51); Lymphocyte % 24.4 % (19-41); Mean Corp Hgb Conc 33.2 g/dL (32-36); Mean Corpuscular Hgb 30.3 pg (27.0-32.0); Mean Corpuscular Volume 91.3 fL (81-99); Mean Platelet Vol. 10.4 fl (6.2-12.0); Monocyte# 0.22 X10^3/uL; Monocyte% 3.7 % (0-10); NRBC Flagged by Analyzer 0 % (0-5); Neutrophil % 70.3 % (47-70); Platelet Count 178 K/mm3 (150-450); RBC Distribution Width CV 12.6 % (11.6-14.6); Red Blood Count 4.26 M/mm3 (4.2-5.4)
[2021-11-02 17:03] LABS: ALB/GLOB Ratio 1.3 RATIO (0.9-2.4); AST(SGOT) 9 U/L (15-37); Alanine Aminotransfer ALT/SGPT 18 U/L (13-56); Albumin, Serum 3.8 g/dL (3.2-5.0); Alkaline Phosphatase 57 U/L (45-117); Anion Gap 4 (5-15); BUN 11 mg/dL (7-18); Chloride 110 mmol/L (98-107); Creatinine, Serum 0.85 mg/dL (0.55-1.02); EST Glomerular Filtration Rate 80 mL/min (>60); Est Glom Filt Rate - Afr Amer 97 mL/min (>60); Estimated Creatinine Clearance 83.71 ml/min; Glucose 141 mg/dL (74-106); Lipase 184 U/L (73-393); Protein, Total 6.8 g/dL (6.4-8.2); Sodium Level 140 mmol/L (136-145)
[2021-11-02 18:07] LABS: Bacteria 0 SEEN /hpf (None Seen); Mucous, Urine 0 SEEN /hpf (<or=2+); Red Blood Cells-Urine 0 SEEN /hpf (0-5); White Blood Cells 0 SEEN /hpf (0-5)
[2021-11-02 18:10] LABS: Color, Urine Yellow (Yellow); Glucose, Dipstick Normal (Normal); Ketone-Dipstick 50 mg/dl (Negative); Leukocyte Esterase-Dipstick Negative /ul (Negative); Nitrite-Dipstick Negative (Negative); Occult Blood-Urine Negative /ul (Negative); Protein-Dipstick 15 mg/dl (Negative); Urine Bilirubin Dipstick Negative (Negative); Urine Clarity Sl. Cloudy (Clear); Urine Urobilinogen Normal (Normal)
[2021-11-02 18:17] LABS: Squamous Epithelial Cells - UA 0-5 SEEN /hpf (5-10)
[2021-11-02 18:41] VITALS: BP 99/49; PULSE 78; RESP 14; O2SAT 97
== END 2021-11-02 18:49 | disposition home or self-care (01) ==
PROVIDERS: Emergency Provider Emergency Medicine; PCP Family Medicine; Visit Provider Emergency Medicine
DX: R10.9 Unspecified abdominal pain (principal); G43.909 Migraine, unspecified, not intractable, without status migrainosus; Z90.710 Acquired absence of both cervix and uterus; E28.2 Polycystic ovarian syndrome; F32.A Depression, unspecified
CPT/HCPCS: 74177; 80053; 81001; 83690; 85025; 99282; J7030; Q9967; A4216

== ENCOUNTER 2022-05-22 12:16 | Emergency (ER) | payer OTHER, MEDICAID, SELFPAY ==
[2022-05-22 12:17] VITALS: BP 115/81; PULSE 98; RESP 16; TEMP 36.6; O2SAT 96; BMI 22.3
--- NOTE | 2022-05-22 13:00 | CT_ITS ---
STUDY: CT ABDOMEN AND PELVIS WITH CONTRAST REASON FOR EXAM: Female, 37 years old. RLQ abd pain RADIATION DOSAGE (If Supplied By Facility): CTDIvol = ( 7.32 ) mGy, DLP = ( 276.65 ) mGycm TECHNIQUE: Transaxial images were obtained from the dome of the diaphragm to the symphysis pubis without oral contrast. IV 100mL Isovue-300 was administered. Sagittal and coronal images were reconstructed. Individualized dose optimization techniques were used for this CT. COMPARISON: Comparison is made with prior study dated 11/02/2021. FINDINGS: The visualized lung bases are unremarkable. The visualized portions of the heart are within normal limits. Small stable cysts seen in the right and left lobe of the liver.. Normal gallbladder and extrahepatic biliary system. Normal spleen. Normal pancreas. Normal bilateral adrenal glands. Normal right kidney. Normal left kidney. Normal visualized stomach. Normal small intestine. Large amount of fecal material is seen in the colon. There are surgical clips in the region of the appendix consistent with a prior appendectomy. Normal abdominal aorta. Normal inferior vena cava. Normal retroperitoneum. Normal urinary bladder. There is absence of the uterus consistent with a prior hysterectomy. There is a 1.6 cm follicle in the right ovary. There is also evidence of a 1.7 cm follicle in the left ovary. Large amount of fecal material is seen in the colon. Normal abdominal wall. Normal osseous structures. CT/Abdomen/Pelvis W IV Cont ONLY IMPRESSION: Stable hepatic cysts. Small follicles are seen in both ovaries. Electronically Signed: James Guillen MD at 14:27 EST ,
--- NOTE | 2022-05-22 13:01 | EDS_ITS ---
HPI HPI - GI History of Present Illness Chief Complaint: Abd Pain Informant: patient Narrative Narrative: Patient is a 37-year-old female with history of PCOS, migraines, SVT status post ablation and mitral valve prolapse presenting with right lower quadrant abdominal pain. Patient states the pain woke her from sleep around 3 AM. Radiates from her umbilicus to her right lower quadrant. It is sharp in nature. She has some associated nausea but no vomiting. The pain is worse with movement or if she hits a bump. It feels better if she applies pressure to the area. She had a normal bowel movement this morning. She states she feels very bloated. She notes that she has had a low-grade temp the past 2 days as high as 100.2. She denies any urinary symptoms. She denies any abdominal discomfort prior to today. Patient states this does not feel like her ovarian cyst. No other complaints at this time. Has had a prior hysterectomy. [facility] Medical History Depression Herpes zoster Insomnia Migraine Mitral valve prolapse SVT (supraventricular tachycardia) Home Medications topiramate 25 mg tablet 25 mg PO DAILY 07/15/17 [History Last Taken 07/15/17] valacyclovir 500 mg tablet 1,000 mg PO DAILY 02/01/19 [History Last Taken Unknown] bupropion HCl 300 mg 24 hr tablet, extended release 300 mg PO DAILY 06/01/21 [History Last Taken Unknown] omeprazole 20 mg capsule,delayed release 20 cap PO DAILY 11/02/21 [History Last Taken Unknown] trazodone 50 mg tablet 50 tab PO DAILY 11/02/21 [History Last Taken Unknown] ondansetron 4 mg disintegrating tablet 4 mg PO Q8H PRN PRN Nausea #10 tabs 05/22/22 [Rx Last Taken Unknown] polyethylene glycol 3350 17 gram/dose oral powder (Miralax) 17 g PO DAILY PRN constipation #119 grams 05/22/22 [Rx Last Taken Unknown] Allergy/AdvReac Type Severity Reaction Status Date / Time adhesive tape Allergy Rash Verified 05/22/22 12:18 sumatriptan [From Imitrex] Allergy Other Verified 05/22/22 12:18 sumatriptan succinate Allergy Other Verified 05/22/22 12:18 [From Imitrex] promethazine HCl AdvReac Vomiting Verified 05/22/22 12:18 [From Phenergan] Surgical History H/O: hysterectomy History of tonsillectomy Hx of appendectomy Social History Smoking Status: Never smoker ROS ROS ED Constitutional Constitutional ED: Reports chills and fever(s) ENT ENT ED: Denies rhinorrhea or sore throat Cardiovascular Cardiovascular: Denies chest pain Respiratory/Chest Respiratory/Chest: Denies cough Gastrointestinal Gastrointestinal: Reports abdominal pain and nausea; Denies constipation, diarrhea or vomiting Genitourinary Genitourinary ED: Denies dysuria, hematuria or urinary frequency Musculoskeletal Musculoskeletal: Denies arthralgias, back pain or myalgias Integumentary Denies rash Neurologic Neurologic: Reports headache(s); Denies weakness Psychiatric Psychiatric: Denies anxiety Hematologic/Lymphatic Hematologic/Lymphatic: Denies easy bleeding or easy bruising EXAM Physical Exam Const Vital Signs: 05/22/22 12:17 05/22/22 15:20 Temperature 97.8 F Temperature Source Temporal Pulse Rate 98 68 Respiratory Rate 16 16 Blood Pressure 115/81 H 104/57 L Blood Pressure Mean 92 Pulse Ox 96 100 Oxygen Delivery Method Room Air Positive well nourished and well developed General Appearance ED: well developed and NAD; Negative for pallor HEENT Reports dry mucous membranes normocephalic and atraumatic Mouth ED: Yes dry mucous membranes Mouth: dry mucous membranes Eyes PERRL and EOMs intact bilaterally Neck supple Resp normal respiratory effort and clear to auscultation bilaterally Cardio regular rate and regular rhythm GI GI Narrative: Positive Rovsing sign, positive psoas sign. No rebound tenderness Inspection: abdominal distention Auscultation: normoactive bowel sounds Palpation: soft and tender RLQ and McBurney's point; Negative for guarding or rigid Back/Spine no CVA tenderness Neuro moves all extremities Sensorium / Orientation: alert, oriented to person, oriented to place and oriented to time Motor Exam: Negative for general weakness Psych mental status grossly normal and thought process normal Skin General Skin Exam: Negative for jaundice or pallor Rashes: no rashes MDM MDM MDM Narrative Medical decision making narrative: Patient is evaluated for sudden onset of right lower quadrant abdominal pain. She has history of hysterectomy but believes that she still has her appendix. She does have tenderness in her right lower quadrant. Vital signs are normal. Work-up including CBC, BMP, lactate and serum is normal. Patient does not complain of any urinary symptoms so have a lower suspicion for urinary tract infection and physical exams axis of pyelonephritis. She is not have any suprapubic tenderness. She does not provide a urinalysis in the emergency room. Patient declines any opioid pain medicine was given a dose of Toradol, Zofran and IV fluids. On repeat evaluation she is much more comfortable and states she is feeling better. CT of the abdomen pelvis shows small ovarian follicles in both ovaries, stable hepatic cyst as well as evidence of prior appendectomy. Patient was not aware she had had an appendectomy but is possible they removed her appendix when she had a hysterectomy. I did speak with radiology, Dr. Dang, who confirmed that there is no signs of any acute surgical process in the right lower quadrant. Patient is offered a pelvic ultrasound for further evaluation of her ovaries and to ensure she is not having an ovarian torsion. States she is feeling better would rather go home. She is counseled that there is a large stool burden on her CT and will be started on MiraLAX. She is given a prescription for Zofran. Is given return precautions. Patient does not have any lab work abnormality consistent with acute infection or inflammation either with a normal lactate and a normal white blood cell count. Lab Data Attestation: I reviewed the patient's lab results. Labs: Laboratory Results - last 24 hr 05/22/22 05/22/22 05/22/22 13:31 13:31 13:31 WBC 6.4 RBC 4.81 Hgb 14.1 Hct 42.5 MCV 88.4 MCH 29.3 MCHC 33.2 RDW Std Deviation 42.1 RDW Coeff of Kaye 12.9 Plt Count 232 MPV 10.2 Immature Gran % (Auto) 0.200 Neut % (Auto) 65.3 Lymph % (Auto) 26.8 [place] % (Auto) 4.9 Eos % (Auto) 2.0 Baso % (Auto) 0.8 Absolute Neuts (auto) 4.2 Absolute Lymphs (auto) 1.71 Nucleated RBC % 0 Sodium 138 Potassium 4.1 Chloride 109 H Carbon Dioxide 23.0 Anion Gap 6 BUN 9 Creatinine 0.89 Estim Creat Clear Calc 86.46 Est GFR (MDRD) Af Amer 91 Est GFR (MDRD) Non-Af 76 BUN/Creatinine Ratio 10.1 Glucose 125 H Lactic Acid 0.7 Calcium 9.1 Total Bilirubin 0.40 AST 21 ALT 51 Alkaline Phosphatase 71 Total Protein 7.3 Albumin 3.8 Globulin 3.5 Albumin/Globulin Ratio 1.1 Serum , Qual 05/22/22 13:31 WBC RBC Hgb Hct MCV MCH MCHC RDW Std Deviation RDW Coeff of Kaye Plt Count MPV Immature Gran % (Auto) Neut % (Auto) Lymph % (Auto) [place] % (Auto) Eos % (Auto) Baso % (Auto) Absolute Neuts (auto) Absolute Lymphs (auto) Nucleated RBC % Sodium Potassium Chloride Carbon Dioxide Anion Gap BUN Creatinine Estim Creat Clear Calc Est GFR (MDRD) Af Amer Est GFR (MDRD) Non-Af BUN/Creatinine Ratio Glucose Lactic Acid Calcium Total Bilirubin AST ALT Alkaline Phosphatase Total Protein Albumin Globulin Albumin/Globulin Ratio Serum , Qual NEGATIVE Radiography Diagnostic Testing: Clinical Impression(s) from Imaging Studies Abdomen/Pelvis CT 05/22/22 13:00 IMPRESSION: Stable hepatic cysts. Small follicles are seen in both ovaries. Electronically Signed: James Guillen MD at 14:27 EST , Discharge Plan Triage Chief Complaint: Abd Pain ED Provider: Saumya Alvarez Dx/Rx/DC Orders Clinical Impression: Abdominal pain, RLQ Instructions: ED Abdominal Pain Unkn Cause Fem, ED Constipation (Adult) Prescriptions: New ondansetron 4 mg tablet,disintegrating 4 mg PO Q8H PRN PRN (Reason: Nausea) Qty: 10 0RF polyethylene glycol 3350 [Miralax] 17 gram/dose powder 17 g PO DAILY PRN (Reason: constipation) Qty: 119 0RF No Action topiramate 25 MG tablet 25 mg PO DAILY valacyclovir 500 MG tablet 1,000 mg PO DAILY bupropion HCl 300 mg tablet extended release 24 hr 300 mg PO DAILY Label Comments: TAKE 1 TABLET BY MOUTH EVERY DAY trazodone 50 mg tablet 50 tab PO DAILY omeprazole 20 mg capsule,delayed release(DR/EC) 20 cap PO DAILY Label Comments: TAKE 1 CAPSULE BY MOUTH DAILY 1/2 HOUR BEFORE BREAKFAST Primary Care Provider: Paddy Batista Referrals: Paddy Batista MD [Primary Care Provider] - Disposition Disposition: Home, Self Care Discharge Date/Time: 05/22/22 15:21
[2022-05-22 13:38] LABS: Absolute Lymphocyte Count 1.71 X10^3/uL (0.83-4.51); Absolute Neutrophil Count 4.2 X10^3/uL (2.0-7.7); Basophil# 0.05 X10^3/uL; Basophil% 0.8 % (0-1); Eosinophil# 0.13 X10^3/uL; Hematocrit 42.5 % (37-47); Hemoglobin 14.1 g/dL (12.0-15.0); Lymphocyte # 1.71 X10^3/ul (0.83-4.51); Lymphocyte % 26.8 % (19-41); Mean Corp Hgb Conc 33.2 g/dL (32-36); Mean Corpuscular Hgb 29.3 pg (27.0-32.0); Mean Corpuscular Volume 88.4 fL (81-99); Mean Platelet Vol. 10.2 fl (6.2-12.0); Monocyte# 0.31 X10^3/uL; Monocyte% 4.9 % (0-10); NRBC Flagged by Analyzer 0 % (0-5); Neutrophil # 4.18 X10^3/uL (2.7-7.7); Neutrophil % 65.3 % (47-70); Platelet Count 232 K/mm3 (150-450); RBC Distribution Width CV 12.9 % (11.6-14.6); RBC Distribution Width SD 42.1 fl (35.1-43.9); Red Blood Count 4.81 M/mm3 (4.2-5.4); White Blood Count 6.4 K/mm3 (4.4-11.0)
[2022-05-22] MEDS: 0.9% Normal Saline 1,000 ML 1000 ML IV (13:40)
[2022-05-22] MEDS: Ketorolac 15 MG/ML Vial IV (13:40)
[2022-05-22] MEDS: Ondansetron 4 MG/2 ML Vial IV (13:40)
[2022-05-22 13:55] LABS: Internal QC Validated? YES +Cl - CLEAR BKGD; Pregnancy, Serum, hCG Quali. NEGATIVE Negative
[2022-05-22 13:56] LABS: ALB/GLOB Ratio 1.1 RATIO (0.9-2.4); AST(SGOT) 21 U/L (15-37); Alanine Aminotransfer ALT/SGPT 51 U/L (13-56); Albumin, Serum 3.8 g/dL (3.2-5.0); Alkaline Phosphatase 71 U/L (45-117); Anion Gap 6 (5-15); BUN 9 mg/dL (7-18); BUN/Creat Ratio 10.1 RATIO (10-20); Calcium,Total 9.1 mg/dL (8.5-10.1); Chloride 109 mmol/L (98-107); Creatinine, Serum 0.89 mg/dL (0.55-1.02); EST Glomerular Filtration Rate 76 mL/min (>60); Est Glom Filt Rate - Afr Amer 91 mL/min (>60); Estimated Creatinine Clearance 86.46 ml/min; Globulin 3.5 g/dL (2.2-4.2); Glucose 125 mg/dL (74-106); Potassium 4.1 mmol/L (3.5-5.1); Protein, Total 7.3 g/dL (6.4-8.2); Sodium Level 138 mmol/L (136-145)
[2022-05-22 14:03] LABS: Lactic Acid 0.7 mmol/L (0.4-1.9)
[2022-05-22 15:20] VITALS: BP 104/57; PULSE 68; RESP 16; O2SAT 100
== END 2022-05-22 15:21 | disposition home or self-care (01) ==
PROVIDERS: Emergency Provider Emergency Medicine; PCP Family Medicine; Visit Provider Emergency Medicine
DX: R10.31 Right lower quadrant pain (principal); R11.0 Nausea; R10.813 Right lower quadrant abdominal tenderness
CPT/HCPCS: 74177; 80053; 83605; 84703; 85025; 96361; 96374; 96375; 99283; J7030; Q9967; A4216; J2405

== ENCOUNTER 2022-12-22 13:54 | Emergency (ER) | payer OTHER, SELFPAY ==
[2022-12-22 13:56] VITALS: BP 96/67; PULSE 80; RESP 18; TEMP 35.8; O2SAT 100; BMI 21.2
--- NOTE | 2022-12-22 15:24 | EX.ED.DYSGE1 ---
HPI History of Present Illness Chief Complaint: Nausea/Vomiting Detail of Chief Complaint: Nausea, vomiting or diarrhea Informant: patient Onset/Context/Timing Onset: Days Context: Sudden Onset Timing: Intermittent Quality: Upper abdominal pain with nausea vomiting diarrhea Location: Upper abdominal pain Current Severity: Mild Maximum Severity: Severe Worsened by: Vomiting and diarrhea Relieved by: Nothing specific Associated Symptoms Associated Symptoms: Thirst, dry mouth and orthostatic lightheadedness Narrative Narrative: Patient is a 37-year-old woman with history of GERD, depression, migraine headaches who presents with nausea, vomiting diarrhea. Diarrhea started yesterday at 2230. The vomiting started at 0400. Patient's had 3-4 loose watery stools and 4-5 episodes of emesis. She has not noted any blood or coffee grounds in the emesis and the stool is not black or maroon in color. There is no mucus noted. She denies any ill contacts. She denies fever, chills night sweats. She did have urinary symptoms which started Friday. She was started on Macrobid. She took her first dose of Macrobid on Friday. She denies headache, visual, ocular auditory symptoms. She denies skin lesions. Prior similar symptoms: No Recent Illness/Hospitalization: Yes ([facility]) [facility] Medical History Depression Herpes zoster Insomnia Migraine Mitral valve prolapse SVT (supraventricular tachycardia) Home Medications topiramate 25 mg tablet 25 mg PO DAILY 07/15/17 [History Last Taken 07/15/17] valacyclovir 500 mg tablet 1,000 mg PO DAILY 02/01/19 [History Last Taken Unknown] bupropion HCl 300 mg 24 hr tablet, extended release 300 mg PO DAILY 06/01/21 [History Last Taken Unknown] omeprazole 20 mg capsule,delayed release 20 cap PO DAILY 11/02/21 [History Last Taken Unknown] trazodone 50 mg tablet 50 tab PO DAILY 11/02/21 [History Last Taken Unknown] ondansetron 4 mg disintegrating tablet 4 mg PO Q8H PRN PRN Nausea #10 tabs 05/22/22 [Rx Last Taken Unknown] polyethylene glycol 3350 17 gram/dose oral powder (Miralax) 17 g PO DAILY PRN constipation #119 grams 05/22/22 [Rx Last Taken Unknown] Allergy/AdvReac Type Severity Reaction Status Date / Time adhesive tape Allergy Rash Verified 12/22/22 13:56 sumatriptan [From Imitrex] Allergy Other Verified 12/22/22 13:56 sumatriptan succinate Allergy Other Verified 12/22/22 13:56 [From Imitrex] promethazine HCl AdvReac Vomiting Verified 12/22/22 13:56 [From Phenergan] Surgical History H/O: hysterectomy History of tonsillectomy Hx of appendectomy Social History (Updated 12/22/22 @ 16:02 by Dolly Dahl) household members: spouse and children Smoking Status: Never smoker substance use type: does not use ROS ROS ED Constitutional Constitutional ED: Denies chills, fever(s), subjective or sweats Eyes Eyes: Denies blurry vision or change in vision ENT ENT ED: Denies ear pain, rhinorrhea or sore throat Cardiovascular Cardiovascular: Denies chest pain or palpitations Respiratory/Chest Respiratory/Chest: Denies cough, dyspnea or dyspnea on exertion Gastrointestinal Gastrointestinal: Reports abdominal pain, diarrhea, nausea and vomiting; Denies melena Genitourinary Genitourinary ED: Denies dysuria, hematuria or urinary frequency Musculoskeletal Musculoskeletal: Denies arthralgias, back pain or myalgias Integumentary Denies rash Neurologic Neurologic: Reports weakness; Denies headache(s) or paresthesias Hematologic/Lymphatic Hematologic/Lymphatic: Reports systems reviewed and no addt'l complaints, except as documented EXAM Physical Exam Const Vital Signs: 12/22/22 13:56 Temperature 96.4 F L Temperature Source Temporal Pulse Rate 80 Respiratory Rate 18 Blood Pressure 96/67 Blood Pressure Mean 76 Pulse Ox 100 Oxygen Delivery Method Room Air Positive well nourished and well developed Constitutional Narrative: Patient is quiet and appears slightly pale. General Appearance ED: well developed and pallor; Negative for cyanotic or diaphoretic HEENT Reports dry mucous membranes HEENT Narrative: Head is atraumatic normocephalic. Ears are normal. Nares are patent. Posterior pharynx is normal. Mouth ED: Yes dry mucous membranes Mouth: dry mucous membranes Eyes PERRL and EOMs intact bilaterally General Eye ED: Negative for pale conjunctiva or scleral icterus Neck no lymphadenopathy, supple and no JVD Resp normal respiratory effort and clear to auscultation bilaterally Cardio regular rate, regular rhythm, S1 normal heart sound, S2 normal heart sound and no murmurs GI non-tender, non-distended and no masses; Negative for normal to inspection, nondistended, normoactive bowel sounds or hepatosplenomegaly Auscultation: hypoactive bowel sounds Palpation: soft Back/Spine no CVA tenderness Extremity normal to inspection General Extremety ED: Negative for edema General Extremity: Negative for edema Neuro oriented x3, CN's II-XII intact bilaterally and no sensory deficits noted Sensorium / Orientation: alert Motor Exam: strength 5/5 throughout Psych mental status grossly normal Skin no rashes or lesions noted, no wounds and skin turgor normal General Skin Exam: pallor; Negative for jaundice MDM MDM MDM Narrative Medical decision making narrative: Since Macrobid is not systemically absorbed and concentrates in the urine doubt this is the cause of her diarrhea. Suspect she has a viral illness. Since she is on no diuretic has no history of cardiovascular disease there is no indication for laboratory testing to assess her electrolytes or kidney function. Her symptoms started less than 24 hours ago. Clinically she is dehydrated. Will administer 1 L of normal saline. She will receive Zofran for her nausea and vomiting and Imodium for her diarrhea. 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 Patient had dry heaves with no vomiting. She was able to keep the Imodium down. She still complains of headache. She has history of migraine we will treat with IV Toradol, Benadryl and Reglan. Patient was reassessed approximately 1845. She feels markedly better. Plan is discharged home. Discharge was delayed because of acuity Discharge Plan Triage Chief Complaint: Nausea/Vomiting ED Provider: Gabriel Webb Dx/Rx/DC Orders Clinical Impression: Nausea vomiting and diarrhea, Acute intractable headache, Dehydration, mild Instructions: ED Vomiting and Diarrhea ... Prescriptions: No Action topiramate 25 MG tablet 25 mg PO DAILY valacyclovir 500 MG tablet 1,000 mg PO DAILY bupropion HCl 300 mg tablet extended release 24 hr 300 mg PO DAILY Patient Comments: TAKE 1 TABLET BY MOUTH EVERY DAY trazodone 50 mg tablet 50 tab PO DAILY omeprazole 20 mg capsule,delayed release(DR/EC) 20 cap PO DAILY Patient Comments: TAKE 1 CAPSULE BY MOUTH DAILY 1/2 HOUR BEFORE BREAKFAST ondansetron 4 mg tablet,disintegrating 4 mg PO Q8H PRN PRN (Reason: Nausea) Qty: 10 0RF polyethylene glycol 3350 [Miralax] 17 gram/dose powder 17 g PO DAILY PRN (Reason: constipation) Qty: 119 0RF Primary Care Provider: Paddy Batista Referrals: Paddy Batista MD [Primary Care Provider] - 1-2 Days if not improving Disposition Disposition: Home, Self Care
[2022-12-22] MEDS: Ondansetron 4 MG/2 ML Vial IV (15:56)
[2022-12-22] MEDS: 0.9% Normal Saline 1,000 ML 1000 ML IV (15:56)
[2022-12-22] MEDS: Loperamide 2 MG Capsule 4 MG PO (15:56)
[2022-12-22] MEDS: DiphenhydrAMINE 50 MG/ML Syringe 25 MG IV (17:24)
[2022-12-22] MEDS: Ketorolac 15 MG/ML Vial IV (17:24)
[2022-12-22] MEDS: Metoclopramide 10 MG/2 ML Vial IV (17:24)
[2022-12-22 19:00] VITALS: PULSE 80; RESP 18
[2022-12-22 19:28] VITALS: BP 129/88; PULSE 62; RESP 15; O2SAT 98
== END 2022-12-22 19:29 | disposition home or self-care (01) ==
PROVIDERS: Emergency Provider Emergency Medicine; PCP Family Medicine; Visit Provider Emergency Medicine
DX: R11.2 Nausea with vomiting, unspecified (principal); R19.7 Diarrhea, unspecified; R51.9 Headache, unspecified; E86.0 Dehydration
CPT/HCPCS: 96361; 96374; 96375; 99283; J7030; A4216; J2405

== ENCOUNTER 2023-08-28 16:20 | Emergency (ER) | payer OTHER, SELFPAY ==
[2023-08-28 16:21] VITALS: BP 123/68; PULSE 95; RESP 17; TEMP 35.8; O2SAT 98; BMI 20.9
--- NOTE | 2023-08-28 16:33 | EDS_ITS ---
HPI History of Present Illness HPI Narrative: 38-year-old female who presents emergency department with left shoulder pain. The patient reports that last night she was helping her parents move logs of wood. She states one of the logs rolled off the back of a trailer and she attempted to catch it. She immediately had pain in the left shoulder. She has had pain and limited range of motion in the left shoulder since last night. 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 The patient thinks she may have dislocated her shoulder in the past but has never sought medical care for this. No prior surgeries of the left shoulder. Patient took no analgesia prior to arrival. She has no neck pain. No numbness, tingling or weakness down the arm. Chief Complaint: Upper Extremity Injury Informant: patient Occured/Mechanism Mechanism/Context: Yes injury Onset/Context/Timing Onset: Yesterday Context: Onset with activity Timing: Continuous Quality of Pain: Aching Current Severity: Moderate Worsened by: Abduction, elevation of the left arm Associated Symptoms Associated Symptoms: Negative for Parasthesia, Weakness or Loss of Funtion [facility] Medical History Depression Herpes zoster Insomnia Migraine Mitral valve prolapse SVT (supraventricular tachycardia) Home Medications topiramate 25 mg tablet 25 mg PO DAILY 07/15/17 [History Last Taken 07/15/17] valacyclovir 500 mg tablet 1,000 mg PO DAILY 02/01/19 [History Last Taken Unknown] bupropion HCl 300 mg 24 hr tablet, extended release 300 mg PO DAILY 06/01/21 [History Last Taken Unknown] omeprazole 20 mg capsule,delayed release 20 cap PO DAILY 11/02/21 [History Last Taken Unknown] trazodone 50 mg tablet 50 tab PO DAILY 11/02/21 [History Last Taken Unknown] ondansetron 4 mg disintegrating tablet 4 mg PO Q8H PRN PRN Nausea #10 tabs 05/22/22 [Rx Last Taken Unknown] polyethylene glycol 3350 17 gram/dose oral powder (Miralax) 17 g PO DAILY PRN constipation #119 grams 05/22/22 [Rx Last Taken Unknown] naproxen 500 mg tablet (Naprosyn) 500 mg PO BID PRN pain #20 tabs 08/28/23 [Rx Last Taken Unknown] Allergy/AdvReac Type Severity Reaction Status Date / Time adhesive tape Allergy Rash Verified 12/22/22 13:56 sumatriptan [From Imitrex] Allergy Other Verified 12/22/22 13:56 sumatriptan succinate Allergy Other Verified 12/22/22 13:56 [From Imitrex] promethazine HCl AdvReac Vomiting Verified 12/22/22 13:56 [From Phenergan] Surgical History H/O: hysterectomy History of tonsillectomy Hx of appendectomy Social History (Updated 12/22/22 @ 16:02 by Dolly Dahl) household members: spouse and children Smoking Status: Never smoker substance use type: does not use ROS ROS ED Constitutional Constitutional ED: Denies chills or fever(s) Cardiovascular Cardiovascular: Denies chest pain Respiratory/Chest Respiratory/Chest: Denies dyspnea Musculoskeletal Musculoskeletal: Reports other Details: Left shoulder arthralgias ; Denies back pain or neck pain Neurologic Neurologic: Denies headache(s), paresthesias or weakness EXAM Physical Exam Const Vital Signs: 08/28/23 16:21 Temperature 96.5 F L Temperature Source Temporal Pulse Rate 95 Respiratory Rate 17 Blood Pressure 123/68 H Blood Pressure Mean 86 Pulse Ox 98 Oxygen Delivery Method Room Air Positive well nourished and well developed General Appearance ED: well developed HEENT Reports moist mucous membranes Eyes PERRL and EOMs intact bilaterally Neck full ROM and supple General: Negative for tenderness Chest Wall inspection of chest normal Resp normal respiratory effort and clear to auscultation bilaterally Effort and Inspection: Negative for pain with movement Cardio regular rate and regular rhythm Back/Spine Cervical Spine: Negative for cervical spine tenderness Thoracic Spine / Upper Back: Negative for thoracic spinal tenderness Extremity normal to inspection Extremity Narrative: Reproducible left shoulder pain with palpation over the anterior left shoulder, abduction, and elevation of the arm. No deformity of the shoulder. Sensation intact. Compartments soft and compressible. Left radial pulse 2+ with good perfusion to the hand. Neuro oriented x3, moves all extremities and no sensory deficits noted Sensorium / Orientation: alert and oriented to person Motor Exam: strength 5/5 throughout MDM MDM MDM Narrative Medical decision making narrative: Patient presents with left shoulder pain. Differential diagnosis includes, but is not limited to, rotator cuff injury, AC separation, shoulder dislocation, fracture, and sprain/strain. Patient received 800 mg ibuprofen in the emergency department for pain control. X-ray imaging of left shoulder is normal. Patient will be given a sling for comfort and also discharged home with naproxen. Patient encouraged RICE therapy at home. She will be given a work excuse as well. Patient to follow-up with her PCP. All questions answered. Return indications discussed. Radiography Diagnostic Testing: X-ray of the left shoulder is normal showing no fracture, separation, or dislocation. Discharge Plan Triage Chief Complaint: Upper Extremity Injury ED Provider: Ginny Vazquez Dx/Rx/DC Orders Clinical Impression: Acute pain of left shoulder due to trauma Instructions: ED Shoulder Sprain Prescriptions: New naproxen [Naprosyn] 500 mg tablet 500 mg PO BID PRN (Reason: pain) Qty: 20 0RF No Action topiramate 25 MG tablet 25 mg PO DAILY valacyclovir 500 MG tablet 1,000 mg PO DAILY bupropion HCl 300 mg tablet extended release 24 hr 300 mg PO DAILY Patient Comments: TAKE 1 TABLET BY MOUTH EVERY DAY trazodone 50 mg tablet 50 tab PO DAILY omeprazole 20 mg capsule,delayed release(DR/EC) 20 cap PO DAILY Patient Comments: TAKE 1 CAPSULE BY MOUTH DAILY 1/2 HOUR BEFORE BREAKFAST ondansetron 4 mg tablet,disintegrating 4 mg PO Q8H PRN PRN (Reason: Nausea) Qty: 10 0RF polyethylene glycol 3350 [Miralax] 17 gram/dose powder 17 g PO DAILY PRN (Reason: constipation) Qty: 119 0RF Primary Care Provider: Paddy Batista Referrals: Paddy Batista MD [Primary Care Provider] - Jorge Luis Mishra DO [Med Staff - Active Staff] - Disposition Disposition: Home, Self Care
--- NOTE | 2023-08-28 16:38 | RAD_ITS ---
STUDY: X-RAY - LEFT SHOULDER REASON FOR EXAM: Female, 38 years old. pain, limited range of motion left shoulder TECHNIQUE: 2 view(s) of the shoulder. COMPARISON: None. FINDINGS: Normal glenohumeral articulation. Normal acromioclavicular joint. Normal acromion. Normal humeral head and visualized proximal humerus. The soft tissue structures are unremarkable. There is no demonstrated fracture. Normal visualized pulmonary apex. RAD/Shoulder min 2 Views IMPRESSION: Normal x-ray examination of the shoulder. Electronically Signed: Adrián Hughes MD at 16:56 EDT ,
== END 2023-08-28 17:34 | disposition home or self-care (01) ==
PROVIDERS: Emergency Provider Emergency Medicine; PCP Family Medicine; Visit Provider Emergency Medicine
DX: S49.92XA Unspecified injury of left shoulder and upper arm, initial encounter (principal); M25.512 Pain in left shoulder; X58.XXXA Exposure to other specified factors, initial encounter
CPT/HCPCS: 73030; 99282

== ENCOUNTER 2024-05-23 07:49 | Emergency (ER) | payer SELFPAY ==
[2024-05-23 07:51] VITALS: BP 113/49; PULSE 97; RESP 18; TEMP 36.6; O2SAT 100; BMI 20.1
--- NOTE | 2024-05-23 08:02 | EKG12_ITS ---
Test Reason : CP Blood Pressure : */* mmHG Vent. Rate : 82 BPM Atrial Rate : 82 BPM P-R Int : 138 ms QRS Dur : 78 ms QT Int : 364 ms P-R-T Axes : 66 84 59 degrees QTcB Int : 425 ms Normal sinus rhythm Normal ECG Confirmed by EDGARDO VALDES, JAQUAN ([id number]), acquisitions editor CHELY LATHAM ([id number]) on 05/25/2024 6:15:39 AM Referred By: [facility] Confirmed By: JAQUAN REYNOSO MD
[2024-05-23 08:32] LABS: Anion Gap 5 (5-15); BUN 15 mg/dL (7-18); BUN/Creat Ratio 17.8 RATIO (10-20); Calcium,Total 9.1 mg/dL (8.5-10.1); Chloride 113 mmol/L (98-107); Creatinine, Serum 0.84 mg/dL (0.55-1.02); EST Glomerular Filtration Rate 79 mL/min (>60); Est Glom Filt Rate - Afr Amer 96 mL/min (>60); Estimated Creatinine Clearance 84.47 ml/min; Glucose 154 mg/dL (74-106); Potassium 3.8 mmol/L (3.5-5.1); Sodium Level 140 mmol/L (136-145); Troponin-I HS (w/2H Reflex) < 3 pg/mL (3.0-54.0)
[2024-05-23 09:49] VITALS: BP 108/53; PULSE 86; RESP 20; O2SAT 100
[2024-05-23 10:07] LABS: Reflex Troponin-HS? (from REC) Y
[2024-05-23 10:54] LABS: Troponin-I HS < 3 pg/mL (3.0-54.0)
[2024-05-23 11:00] VITALS: BP 98/48; PULSE 70; RESP 13; O2SAT 100
--- NOTE | 2024-05-23 11:19 | ED.VIS.CHEST ---
HPI History of Present Illness Chief Complaint: Chest Pain Detail of Chief Complaint: Sharp central chest pain radiating to neck Informant: patient Onset/Context/Timing Onset: Today and Hours Activity at onset: sudden Timing: Continuous Quality: Positive for Sharp Location: - (Central chest) Current Severity: Mild Maximum Severity: Severe Worsened By: Nothing Relieved By: Nothing Associated Symptoms: Positive for - (Patient reports she passed out. There is no documentation of syncope by EMS); Negative for Nausea, Vomiting, Diaphoresis, Dyspnea, Cough, Fever, Lightheadedness, Acid Reflux or Palpitations Narrative Narrative: Patient is a 39-year-old woman. She has history of supraventricular tachycardia, mitral valve prolapse and migraines. She has history of chronic chest pain. She had an ablation for SVT. She has not had episode of SVT since 2010. Patient states she was sitting when this occurred. She was sitting for 30 minutes. Patient states that her coworker told her that her heart rate went up to 130. Rhythm strips were not left. Denied headache, visual, ocular auditory symptoms. She denied nausea, vomiting or diaphoresis. There was no comment that she was pale per paramedics. 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 She denies abdominal pain, black or maroon-colored stool. She denies dyspnea, dyspnea exertion or pain with breathing. She does have history of GERD on omeprazole. Prior Similar Symptoms: Yes and - (Proximal supraventricular tachycardia.) Recent Illness/Hospitalization: No CVD Risk Factors: Negative for Hypertension, Diabetes, Hypercholesterolemia or Family History 1' </=55 PE Risk Factors: Negative for Recent Travel/Surgery, Recent Immobilization, Prior DVT or PE, Cancer or OCP + Smoking + >/=35 TAD Risk Factors: Negative for Marfan's Syndrome or Family History [facility] Medical History Herpes zoster Insomnia Depression Mitral valve prolapse SVT (supraventricular tachycardia) Migraine Home Medications ?Medication ?Instructions ?Recorded ?Last Taken ?Type topiramate 25 mg tablet 25 mg PO DAILY 07/15/17 07/15/17 History valacyclovir 500 mg tablet 1,000 mg PO DAILY 02/01/19 Unknown History bupropion HCl 300 mg 24 hr tablet, 300 mg PO DAILY 06/01/21 Unknown History extended release omeprazole 20 mg capsule,delayed 20 cap PO DAILY 11/02/21 Unknown History release trazodone 50 mg tablet 50 tab PO DAILY 11/02/21 Unknown History ondansetron 4 mg disintegrating 4 mg PO Q8H PRN PRN Nausea #10 tabs 05/22/22 Unknown Rx tablet polyethylene glycol 3350 17 17 g PO DAILY PRN constipation 05/22/22 Unknown Rx gram/dose oral powder (Miralax) #119 grams naproxen 500 mg tablet (Naprosyn) 500 mg PO BID PRN pain #20 tabs 08/28/23 Unknown Rx Allergy/AdvReac Type Severity Reaction Status Date / Time adhesive tape Allergy Rash Verified 05/23/24 07:51 sumatriptan (From Imitrex) Allergy Other Verified 05/23/24 07:51 sumatriptan succinate (From Allergy Other Verified 05/23/24 07:51 Imitrex) trazodone AdvReac Mild VOMIT Verified 05/23/24 07:51 promethazine HCl (From AdvReac Vomiting Verified 05/23/24 07:51 Phenergan) Surgical History Hx of appendectomy History of tonsillectomy H/O: hysterectomy Social History household members: spouse and children Smoking Status: Never smoker substance use type: does not use ROS ROS ED Constitutional Constitutional ED: Denies chills, fever(s), subjective, sweats or weight loss Eyes Eyes: Reports none ENT ENT ED: Denies ear pain or rhinorrhea Cardiovascular Cardiovascular: Reports as per HPI; Denies orthopnea or paroxysmal nocturnal dyspnea Respiratory/Chest Respiratory/Chest: Denies cough, dyspnea, dyspnea on exertion, orthopnea or paroxysmal nocturnal dyspnea Gastrointestinal Gastrointestinal: Denies abdominal pain, constipation, diarrhea, melena, nausea or vomiting Musculoskeletal Musculoskeletal: Denies arthralgias, back pain or myalgias Integumentary Denies rash Neurologic Neurologic: Denies headache(s), paresthesias or weakness Psychiatric Psychiatric: Denies anxiety Hematologic/Lymphatic Hematologic/Lymphatic: Denies easy bleeding or easy bruising EXAM Physical Exam Const Vital Signs: 05/23/24 07:51 05/23/24 07:54 05/23/24 09:49 Temperature 97.8 F Temperature Source Oral Pulse Rate 97 86 Respiratory Rate 18 20 H Respiratory Effort Normal Blood Pressure 113/49 L 108/53 L Blood Pressure Mean 70 71 Pulse Ox 100 100 Oxygen Delivery Method Room Air 05/23/24 11:00 Temperature Temperature Source Pulse Rate 70 Respiratory Rate 13 Respiratory Effort Blood Pressure 98/48 L Blood Pressure Mean 64 Pulse Ox 100 Oxygen Delivery Method Positive well nourished and well developed; Negative for obese Constitutional Narrative: Patient appears in no distress. Vital signs are normal. General Appearance ED: well developed and NAD; Negative for pallor Nutritional Appearance: Negative for obese HEENT Reports TM's clear and moist mucous membranes normocephalic and atraumatic Tympanic Membrane ED: Yes TM's clear Eyes PERRL and EOMs intact bilaterally General Eye ED: Negative for pale conjunctiva or scleral icterus Neck no lymphadenopathy, supple and no JVD Chest Wall palpation of chest normal Resp normal respiratory effort and clear to auscultation bilaterally Cardio regular rate, regular rhythm, S1 normal heart sound, S2 normal heart sound and no murmurs Peripheral Pulses: pulses 2+ throughout GI normal to inspection, nondistended, normoactive bowel sounds, soft to palpation, non-tender, non-distended and no masses; Negative for hepatosplenomegaly Back/Spine no CVA tenderness and no thoracic nor lumbar tenderness Extremity normal to inspection General Extremety ED: Negative for edema, pulses abnormal or tenderness General Extremity: Negative for edema or pulses abnormal Neuro oriented x3, CN's II-XII intact bilaterally, no sensory deficits noted and gait normal Sensorium / Orientation: awake and alert Motor Exam: strength 5/5 throughout Skin no rashes or lesions noted and no wounds General Skin Exam: Negative for jaundice or pallor [facility] Lab Data Attestation: I reviewed the patient's lab results. Lab results narrative: Basic metabolic panel reveals a glucose of 154 with a normal CO2 anion gap. First troponin and second troponin were both less than 3. Based on troponin flowsheet with both troponin is less than 4 negative predictive value is 100% i.e. no coronary disease Labs: Laboratory Results - last 24 hr 05/23/24 05/23/24 07:44 10:23 Sodium 140 Potassium 3.8 Chloride 113 H Carbon Dioxide 21.0 Anion Gap 5 BUN 15 Creatinine 0.84 Estim Creat Clear Calc 84.47 Est GFR (MDRD) Af Amer 96 Est GFR (MDRD) Non-Af 79 BUN/Creatinine Ratio 17.8 Glucose 154 H Calcium 9.1 Troponin I High Sens < 3 L < 3 L Rhythm Strip Rhythm Strip: Sinus Rhythm Rate: 88 Ectopy: None EKG Initial EKG: Attestation: I personally reviewed and interpreted this EKG as follows: Interpretation: Sinus Rhythm (Rate is 82. The EKG is normal. MN interval is 138 ms. QRS duration 70 ms. QT duration 304 ms. 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 Instructions: ED Chest Pain, Noncardiac, ED Mitral Valve Prolapse Prescriptions: No Action topiramate 25 MG tablet 25 mg PO DAILY valacyclovir 500 MG tablet 1,000 mg PO DAILY bupropion HCl 300 mg tablet extended release 24 hr 300 mg PO DAILY Patient Comments: TAKE 1 TABLET BY MOUTH EVERY DAY trazodone 50 mg tablet 50 tab PO DAILY omeprazole 20 mg capsule,delayed release(DR/EC) 20 cap PO DAILY Patient Comments: TAKE 1 CAPSULE BY MOUTH DAILY 1/2 HOUR BEFORE BREAKFAST ondansetron 4 mg tablet,disintegrating 4 mg PO Q8H PRN PRN (Reason: Nausea) Qty: 10 0RF polyethylene glycol 3350 [Miralax] 17 gram/dose powder 17 g PO DAILY PRN (Reason: constipation) Qty: 119 0RF naproxen [Naprosyn] 500 mg tablet 500 mg PO BID PRN (Reason: pain) Qty: 20 0RF Primary Care Provider: Paddy Batista Referrals: Paddy Batista MD [Primary Care Provider] - As Needed Print Language: Pashto Disposition Disposition: Home, Self Care
[2024-05-23 11:30] VITALS: BP 98/48; PULSE 70; RESP 13; TEMP 36.6; O2SAT 100
== END 2024-05-23 11:37 | disposition home or self-care (01) ==
PROVIDERS: Emergency Provider Emergency Medicine; PCP Family Medicine; Visit Provider Emergency Medicine
DX: I34.1 Nonrheumatic mitral (valve) prolapse (principal); R00.0 Tachycardia, unspecified
CPT/HCPCS: 80048; 84484; 93005; 99285